=== PATIENT | male | born 1955 | race Caucasian/White ===

== ENCOUNTER 2016-09-13 10:45 | Outpatient (RCR) | payer BC | END 2016-09-14 | disposition home or self-care (01) | LOC: WSPT | DX: M75.41 Impingement syndrome of right shoulder (principal); M75.121 Complete rotator cuff tear or rupture of right shoulder, not specified as traumatic; M66.821 Spontaneous rupture of other tendons, right upper arm ==

== ENCOUNTER 2016-10-11 10:45 | Outpatient (RCR) | payer BC | END 2016-10-12 13:12 | disposition home or self-care (01) | LOC: WSPT 10:45 | DX: M75.41 Impingement syndrome of right shoulder (principal); M75.121 Complete rotator cuff tear or rupture of right shoulder, not specified as traumatic; M66.821 Spontaneous rupture of other tendons, right upper arm | CPT/HCPCS: G0283-GP ==

== ENCOUNTER 2019-07-30 06:27 | Emergency (ER) | payer BC ==
[~2019-07-30] VITALS: Ht 170.2 cm; Wt 90.9 kg
[2019-07-30 06:31] VITALS: TEMP 97.7
[2019-07-30] MEDS ORDERED: NORVASC 10MG10 MG PO (06:37)
[2019-07-30] MEDS ORDERED: FLONASEALLERGY NS (06:37)
[2019-07-30] MEDS ORDERED: ZYRTEC 10MG10 MG PO (06:37)
[2019-07-30] MEDS ORDERED: COZAAR 50MG50 MG/TAB PO (06:38)
[2019-07-30] MEDS ORDERED: HCTZ12.5TAB PO (06:38)
[2019-07-30 07:39] LABS: BASO % 0.2 % (0.0-2.0); EOS # 0.1 (0.0-0.7); EOS % 0.9 % (0-4.0); GRAN # 8.7 (1.4-6.5); GRAN % 88.6 % (42.2-75.2); HEMATOCRIT 42.8 % (42.0-52.0); LYMPH # 0.4 (1.2-3.4); LYMPH % 4.4 % (20.0-51.0); MEAN CELL VOLUME 86 fl (80.0-100.0); MEAN CORPUSCULAR HEMOGLOBIN 30 pg (27.0-31.0); MEAN CORPUSCULAR HGB CONC 35 g/dl (33.0-37.0); MEAN PLATELET VOLUME 10.5 fl (7.4-10.4); MONO # 0.6 (0.1-0.6); MONO % 5.6 % (1.7-9.3); PLATELET COUNT 134 K/mm3 (130-400); RED BLOOD COUNT 4.97 M/mm3 (4.20-5.60); REDCELL DISTRIBUTION WIDTH-CV 12.5 % (11.5-14.5)
[2019-07-30 07:52] LABS: ALANINE AMINOTRANSFERASE 38 U/L (21-72); ALBUMIN 4.2 gm/dL (3.5-5.0); ALKALINE PHOSPHATASE 82 U/L (50-136); ANION GAP 8 mmol/L (7-16); AST,SGOT 32 U/L (15-37); BLOOD UREA NITROGEN 15 mg/dL (9-20); CALCIUM 8.7 mg/dL (8.4-10.2); CARBON DIOXIDE 26 mmol/L (22-30); CHLORIDE 105 mmol/L (98-107); CREATININE, serum 0.76 (0.66-1.25); GLUCOSE 176 mg/dL (74-106); LIPASE 59 U/L (23-300); POTASSIUM 4.2 mmol/L (3.4-5.0); SODIUM 139 mmol/L (137-145); TOTAL PROTEIN 7.1 gm/dL (6.4-8.2)
[2019-07-30 07:53] LABS: C-REACTIVE PROTEIN < 0.5 mg/dL (0.0-0.9)
[2019-07-30 08:01] LABS: TROPONIN-I < 0.012 ng/mL (0.000-0.035)
[2019-07-30 08:20] LABS: COLLECTION METHOD CLEAN CATCH
[2019-07-30 08:27] LABS: PH 5 (5-8); SQUAMOUS EPITHELIAL None Seen /hpf; URINE APPEARANCE Clear; URINE BACTERIA None Seen /hpf; URINE BILIRUBIN Negative (NEGATIVE); URINE BLOOD Negative (NEGATIVE); URINE COLOR Yellow; URINE GLUCOSE 1+ (NEGATIVE); URINE KETONE Negative (NEGATIVE); URINE LEUKOCYTE ESTERASE Negative (NEGATIVE); URINE NITRATE Negative (NEGATIVE); URINE PROTEIN(semi-quant) Negative (NEGATIVE); URINE RBC None Seen /hpf
[2019-07-30 09:16] VITALS: BP 125/71; PULSE 81
== END 2019-07-30 09:16 | disposition home or self-care (01) ==
LOC: COL.ER 06:27
PROVIDERS: Emergency Medicine
DX: R55 Syncope and collapse (principal); I10 Essential (primary) hypertension; Z79.51 Long term (current) use of inhaled steroids
CPT/HCPCS: J2405; J7030